=== PATIENT | female | born 1945 | race African-American/Black ===

== ENCOUNTER 2018-06-16 13:05 | Emergency (ER) | payer MEDICARE, BC | END 2018-06-16 14:48 | disposition home or self-care (01) | LOC: FTE 13:05 | DX: S40.022A Contusion of left upper arm, initial encounter (principal); I10 Essential (primary) hypertension; V49.40XA Driver injured in collision with unspecified motor vehicles in traffic accident, initial encounter | CPT/HCPCS: 99282 ==

== ENCOUNTER 2018-06-25 14:22 | Emergency (ER) | payer MEDICARE, BC | END 2018-06-25 16:18 | disposition home or self-care (01) | LOC: FTE 14:22 | DX: S40.022A Contusion of left upper arm, initial encounter (principal); S22.32XA Fracture of one rib, left side, initial encounter for closed fracture; R91.1 Solitary pulmonary nodule; E11.9 Type 2 diabetes mellitus without complications; I10 Essential (primary) hypertension; V49.40XA Driver injured in collision with unspecified motor vehicles in traffic accident, initial encounter | CPT/HCPCS: 71045; 71100; 73080-LT; 73090; 99284-25 ==